=== PATIENT | male | born 1965 | race Caucasian/White ===

== ENCOUNTER 2024-05-13 06:00 | Outpatient (RCR) | payer MEDICARE, MEDICAID, SELFPAY | END 2024-06-11 23:59 | disposition home or self-care (01) | LOC: MPT 06:00 | PROVIDERS: Visit Provider Student in an Organized Health Care Education/Training Program | DX: M25.571 Pain in right ankle and joints of right foot (principal); G89.29 Other chronic pain | CPT/HCPCS: 97110; 97112; 97140; 97162 ==

== ENCOUNTER 2024-06-12 05:00 | Outpatient (RCR) | payer MEDICARE, MEDICAID, SELFPAY | END 2024-07-12 23:59 | disposition home or self-care (01) | LOC: MPT 05:00 | PROVIDERS: Visit Provider Student in an Organized Health Care Education/Training Program | DX: M25.571 Pain in right ankle and joints of right foot (principal); G89.29 Other chronic pain; M25.671 Stiffness of right ankle, not elsewhere classified | CPT/HCPCS: 97110; 97112 ==

== ENCOUNTER 2024-07-13 05:00 | Outpatient (RCR) | payer MEDICARE, MEDICAID, SELFPAY | END 2024-08-11 23:59 | disposition home or self-care (01) | LOC: MPT 05:00 | PROVIDERS: Visit Provider Student in an Organized Health Care Education/Training Program | DX: M25.571 Pain in right ankle and joints of right foot (principal); M25.671 Stiffness of right ankle, not elsewhere classified; G89.29 Other chronic pain | CPT/HCPCS: 97110 ==

== ENCOUNTER 2024-10-12 22:31 | Emergency (ER) | payer MEDICARE, MEDICAID, SELFPAY ==
--- OUTSIDE RECORDS SUMMARY | 2024-10-09 09:00 | XMS_ITS | Encounter Summary ---
Author Organization [facility] Address 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 Role Phone Yung Sanford DO Primary Care Provider [phone] Reason for Referral * CT Scan (Routine) - Pending Review Specialty Diagnoses / Procedures Referred By Isai acevedo Referred To Contact Radiology Diagnoses Tobacco use Personal history of nicotine dependence Procedures CT LUNG SCREENING (LDCT BASELINE OR ANNUAL) Yung Sanford DO [address] [place] [phone] Phone: tel: fax: [facility] [place] [address] [place] [phone] Phone: tel: fax: Referral ID Status Reason Start Date Expiration Date Visits Requested Visits Authorized [id number] Pending Review [facility] [place] Schedule 10/09/2024 11/09/2025 1 1 Reason for Visit * Reason Comments Chronic Conditions Coordination Smoking Cessation Encounter Details Date Type Department Care Team (Late st Contact Info) Description 10/09/2024 9:00 AM CDT Office Visit [facility] [address] [place] [phone] Yung Sanford DO [address] [place] [phone] Encounter for routine adult health examination without abnormal findings (Primary Dx); Mixed hyperlipidemia; Chronic bilateral low back pain without sciatica; Inflammatory arthritis; Tobacco use; Personal history of nicotine dependence; Encounter for colorectal cancer screening; Night sweats Social History Tobacco Use Types Packs/Day Years Used Date Smoking Tobacco: Every Day Cigarettes 1 45 Smokeless Tobacco: Never Alcohol Use Standard Drinks/Week Comments No 0 (1 standard drink = 0.6 oz pur e alcohol) Feeling Safe Answer Date Recorded Are you in a relationship wi th someone who hurts you emotionally and/or physically? 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 Gender Identity Not on file Sexual Orientation Not on file documented as of this encounter Last Filed Vital Signs Vital Sign Reading Time Taken Comments Blood Pressure 136/76 10/09/2024 9:05 AM CDT Pulse 92 10/09/2024 9:05 AM CDT Temperature 36.7 C (98 F) 10/09/2024 9:05 AM CDT Respiratory Rate 18 10/09/2024 9:05 AM CDT Oxygen Saturation 99% 10/09/2024 9:05 AM CDT Room Air Inhaled Oxygen Concentration - - Weight 78.6 kg (173 lb 3.2 oz) 10/09/2024 9:05 A M CDT Height 170.2 cm (5' 7 ) 10/09/2024 9:05 AM CDT Body Mass Index 27.13 10/09/2024 9:05 AM CDT documented in this encounter Patient Instructions * Attachments The following attachments cannot be sent through Care Everywhere. * Bupropion ([place]) * Sleep Health: General Info ([place]) documented in this encounter Progress Notes * Yung Sanford DO - 10/09/2024 9:07 AM CDT Chief Complaint Patient presents with Chronic Conditions Coordination SUBJECTIVE: History of Present Illness The patient is a 59-year-old male presenting for a general follow-up. Arthritis - History of arthritis, evaluated by rheumatology - Started on Humira for possible psoriatic arthritis with red flakiness behind the ears and in the groin - Humira has been effective, and he reported improvement to rheumatology on 07/09/2024 - No red flakiness on his hairline Hyperlipidemia - Elevated A1c of 5.7 in 07/2024 Chronic Ankle Dysplasia or Instability - Diagnosed by pain management in 05/2024 - Performs home exercises due to financial constraints - Steroids and Flexeril on 09/02/2024 did not significantly alleviate his back pain - Plans to schedule another nerve burn procedure High Blood Sugar Level - High blood sugar level during the last test, attributed to not fasting and consuming soda prior - Drinks soda daily and refills his bottle throughout the day Sleep Disturbances - Often awake until 4:00 AM - Deep breathing exercises help him fall asleep quickly - Wakes up after a few hours to use the bathroom and remains awake for another 4 hours - No reported stress Fevers - Experiencing fevers at night, starting 3 days ago, lasting for a couple of weeks - Fevers occur around bedtime, causing hot eyes and body warmth, shivering, and excessive sweating - Morning headaches - Normal body temperature is 96.8??F, rising to 99??F during episodes - Increased coughing and expectoration - No worsening of head congestion Additional Information - Interested in colon cancer screening - Considering quitting smoking, exploring alternatives to patches and Chantix, which causes nausea - No new lumps, bumps, bruises, chest pain, shortness of breath, diarrhea, abdominal pain, bladder pain, blood in urine or bowel movements, or changes in urinary habits Wt Readings from Last 5 Encounters: 10/09/24 78.6 kg (173 lb 3.2 oz) 09/02/24 78.3 kg (172 lb 9.6 oz) 07/22/24 78 kg (172 lb) 07/09/24 78.2 kg (172 lb 8 oz) 05/05/24 76.2 kg (168 lb) Ht Readings from Last 1 Encounters: 10/09/24 5' 7 (1.702 m) BMI Readings from Last 5 Encounters: 10/09/24 27.13 kg/m?? 09/02/24 27.03 kg/m?? 07/22/24 26.94 kg/m?? 07/09/24 27.02 kg/m?? 05/05/24 26.31 kg/m?? Current Outpatient Medications on File Prior to Visit Medication Sig Dispense Refill adalimumab (Humira,CF, Pen) 40 mg/0.4 mL Pen Injector Kit INJECT 0.4ML SUBCUTANEOUSLY ONCE EVERY 2 WEEKS 2 Each 6 diclofenac sodium (VOLTAREN) 50 mg Tablet, Delayed Release (E.C.) Take 1 Tablet (50 mg) by mouth 2 times daily. 180 Tablet 3 rosuvastatin (CRESTOR) 10 mg tablet Take 1 Tablet (10 mg) by mouth daily. 100 Tablet 3 acetaminophen (TYLENOL) 500 mg tablet Take 2 Tablets (1,000 mg) by mouth every 6 hours as needed for Pain. 240 Tablet 11 No current facility-administered medications on file prior to visit. PAST MEDICAL/SURGICAL HISTORY: Past Medical History: Diagnosis Date Back pain 30+ years Melanoma of neck (CMS/HCC) Past Surgical History: Procedure Laterality Date CATARACT EXTRACTION Left 07/07/2021 HX MASTOIDECTOMY HX MOLE REMOVAL Left left side of bottom HX VASECTOMY Social History Socioeconomic History Marital status: Tobacco Use Smoking status: Every Day Current packs/day: 1.00 Average packs/day: 1 pack/day for 45.0 years (45.0 ttl pk-yrs) Types: Cigarettes Smokeless tobacco: Never Vaping Use Vaping status: Never Used Substance and Sexual Activity Alcohol use: No Drug use: No Sexual activity: Not Currently Social Drivers of Health Feeling Safe: Not At Risk (03/24/2024) Feeling Safe Patient has indicated abuse: : No OBJECTIVE: PHYSICAL EXAM: BP 136/76 (BP Location: Right arm, Patient Position (BP): Sitting, BP Cuff Size: Adult) Pulse 92 Temp 98 ??F (36.7 ??C) (Temporal) Resp 18 Ht 5' 7 (1.702 m) Wt 78.6 kg (173 lb 3.2 oz) SpO2 99% Comment: Room Air BMI 27.13 kg/m?? Physical Exam Vitals and nursing note reviewed. Constitutional: General: He is not in acute distress. Appearance: Normal appearance. He is normal weight. He is not ill-appearing, toxic-appearing or diaphoretic. HENT: Head: Normocephalic and atraumatic. Right Ear: External ear normal. Left Ear: External ear normal. Nose: Nose normal. No rhinorrhea. Mouth/Throat: Mouth: Mucous membranes are moist. Eyes: General: No scleral icterus. Extraocular Movements: Extraocular movements intact. Conjunctiva/sclera: Conjunctivae normal. Cardiovascular: Rate and Rhythm: Normal rate and regular rhythm. Pulses: Normal pulses. Pulmonary: Effort: Pulmonary effort is normal. Breath sounds: No stridor. No wheezing. Abdominal: General: Abdomen is flat. Musculoskeletal: General: No deformity or signs of injury. Normal range of motion. Cervical back: Normal range of motion and neck supple. Right lower leg: No edema. Left lower leg: No edema. Lymphadenopathy: Cervical: No cervical adenopathy. Skin: General: Skin is warm and dry. Capillary Refill: Capillary refill takes less than 2 seconds. Findings: No bruising or erythema. Neurological: General: No focal deficit present. Mental Status: He is alert and oriented to person, place, and time. Gait: Gait normal. Psychiatric: Mood and Affect: Mood normal. Behavior: Behavior normal. Procedures RESULTS: Results Telephone on 07/10/24 (from the past 16 weeks) CBC WITH DIFFERENTIAL Collection Time: 07/29/24 8:53 AM Result Value Ref Range WBC 7.1 3.8 - 10.8 Thousand/uL RBC 5.31 4.20 - 5.80 Million/uL HEMOGLOBIN 16.8 13.2 - 17.1 g/dL HEMATOCRIT 51.3 (H) 38.5 - 50.0 % MCV 96.6 80.0 - 100.0 fL MCH 31.6 27.0 - 33.0 pg MCHC 32.7 32.0 - 36.0 g/dL RDW 13.0 11.0 - 15.0 % PLATELETS 168 140 - 400 Thousand/uL MPV 9.6 7.5 - 12.5 fL NEUTROPHIL ABSOLUTE 3,635 1,500 - 7,800 cells/uL LYMPHOCYTE ABSOLUTE 2,805 850 - 3,900 cells/uL MONOCYTE ABSOLUTE 447 200 - 950 cells/uL EOSINOPHIL ABSOLUTE 170 15 - 500 cells/uL BASOPHILS ABSOLUTE 43 0 - 200 cells/uL NEUTROPHIL 51.2 % LYMPHOCYTES 39.5 % MONOCYTE 6.3 % EOSINOPHILS 2.4 % BASOPHILS 0.6 % COMPREHENSIVE METABOLIC PANEL Collection Time: 07/29/24 8:53 AM Result Value Ref Range GLUCOSE 132 (H) 65 - 99 mg/dL BUN 16 7 - 25 mg/dL CREATININE 0.97 0.70 - 1.30 mg/dL GFR 90 > OR = 60 mL/min/1.73m2 BUN/CREAT RATIO SEE NOTE: 6 - 22 (calc) SODIUM 137 135 - 146 mmol/L POTASSIUM 3.8 3.5 - 5.3 mmol/L CHLORIDE 106 98 - 110 mmol/L CO2 23 20 - 32 mmol/L CALCIUM 8.7 8.6 - 10.3 mg/dL TOTAL PROTEIN 6.1 6.1 - 8.1 g/dL ALBUMIN 4.2 3.6 - 5.1 g/dL GLOBULIN 1.9 1.9 - 3.7 g/dL (calc) ALBUMIN/GLOBULIN RATIO 2.2 1.0 - 2.5 (calc) BILIRUBIN TOTAL 0.3 0.2 - 1.2 mg/dL ALKALINE PHOSPHATASE 81 35 - 144 U/L AST 24 10 - 35 U/L ALT 32 9 - 46 U/L HEMOGLOBIN A1C Collection Time: 07/29/24 8:53 AM Result Value Ref Range HEMOGLOBIN A1C 5.7 (H) <5.7 % ESTIMATED AVERAGE GLUCOSE (MG/DL) 117 mg/dL ESTIMATED AVERAGE GLUCOSE (MMOL/L) 6.5 mmol/L LIPID PANEL Collection Time: 07/29/24 8:53 AM Result Value Ref Range CHOLESTEROL 105 <200 mg/dL HDL 26 (L) > OR = 40 mg/dL TRIGLYCERIDE 384 (H) <150 mg/dL LDL CALCULATED 39 mg/dL (calc) CHOL/HDL RATIO 4.0 <5.0 (calc) NON-HDL CHOLESTEROL 79 <130 mg/dL (calc) TSH Collection Time: 07/29/24 8:53 AM Result Value Ref Range TSH 1.67 0.40 - 4.50 mIU/L VITAMIN D 25 HYDROXY Collection Time: 07/29/24 8:53 AM Result Value Ref Range VITAMIN D, 25 OH, TOTAL 21 (L) 30 - 100 ng/mL PSA Collection Time: 07/29/24 8:53 AM Result Value Ref Range PSA 0.54 < OR = 4.00 ng/mL MICROALBUMIN/CREATININE RATIO, RANDOM UR Collection Time: 07/29/24 8:54 AM Result Value Ref Range CREATININE, URINE 233 20 - 320 mg/dL ALBUMIN, URINE 0.4 See Note: mg/dL ALB/CREAT RATIO, URINE 2 <30 mg/g creat - Labs: - A1c: 5.7% (07/2024) - LDL cholesterol: Normal - Vitamin D: Slightly low - PSA: Normal ASSESSMENT/PLAN: ICD-10-CM ICD-9-CM 1. Encounter for routine adult health examination without abnormal findings Z00.00 V70.0 2. Mixed hyperlipidemia E78.2 272.2 3. Chronic bilateral low back pain without sciatica M54.50 724.2 G89.29 338.29 4. Inflammatory arthritis M19.90 714.9 5. Tobacco use Z72.[address] LUNG SCREENING (LDCT BASELINE OR ANNUAL) buPROPion HCL (WELLBUTRIN SR) 150 mg Sustained Release 12 hour tablet 6. Personal history of nicotine dependence Z87.[address] LUNG SCREENING (LDCT BASELINE OR ANNUAL) buPROPion HCL (WELLBUTRIN SR) 150 mg Sustained Release 12 hour tablet 7. Encounter for colorectal cancer screening Z12.11 V76.51 OCCULT BLOOD IMMUNOASSAY, COLORECTAL SCREEN Z12.12 V76.41 8. Night sweats R61 780.8 CBC WITH DIFFERENTIAL C-REACTIVE PROTEIN TSH Assessment & Plan 1. Psoriatic Arthritis: Stable. - Continue Humira as prescribed by Rheumatology. 2. Chronic Ankle Dysplasia: - Diagnosed with chronic ankle dysplasia and instability by Pain Management in May. - Given physical therapy exercises but has difficulty affording regular sessions. Additional exercises from the [employer] for knees, hips, and back will be provided. - Continue home exercises as recommended by Pain Management. 3. Hyperlipidemia: Stable. - Continue current low dose of rosuvastatin. 4. Prediabetes: A1c 5.7. - Monitor sugar intake and limit sweets, candies, cookies, cakes, pies, and soda intake to one 12-ounce can with a meal. 5. Vitamin D Deficiency: Vitamin D slightly low. - Take vitamin D supplements at 4000 units daily (100 mcg daily). - Recheck vitamin D levels in approximately 6 months. 6. Smoking Cessation: - Prescribe bupropion to aid in smoking cessation. Taper back on smoking while taking the medication. 7. Insomnia: - Discussed techniques such as deep breathing exercises and clearing space. Provide information on sleep hygiene. - Prescribe hydroxyzine for use as needed to aid sleep. 8. Night Sweats: - Order labs to check thyroid function, red and white blood cell counts, and CRP levels. 9. Health Maintenance: - Schedule lung cancer screening due to smoking history. - Provide stool test for colon cancer screening. Follow-up - Scheduled in 3 months. Preventive Care Recommendations for AVERAGE Risk Adult Males 55 - 65 years old Measure USPSTF Recommendation Plan Colon Cancer screening Colonoscopy every 10 yrs or FIT yearly; ages 45-75 ordered/scheduled Lung Cancer Screening Annual low-dose CT, adults 50 - 80* w/ >20 pack-year smoking hx who currently smoke or have quit w/in 15 yrs (*Some insurances may not cover <55 yo, >77 yo or <30 pk yrs) meets criteria, ordered reports that he has been smoking cigarettes. He has a 45 pack-year smoking history. He has never used smokeless tobacco. Lipid Screening Identification of dyslipidemia and calculation of 10-year CVD event risk requires universal lipid screening in adults ages 40 - 75 already done/up to date, ordered/scheduled Diabetes screening Adults 40-70 who are overweight or obese already done/up to date PSA testing Men 55-69: individual decision based on review of potential benefits and harms. Men >70 not recommended already done/up to date HIV testing Adolescents and adults 15 - 65 patient declined Hepatitis C Screening Adults 18-79 Screening previously completed Immunizations COVID-19 Influenza Pneumococcal Tdap/Td Zoster (Shingles) LOW DOSE CT LUNG CANCER SCREENING ELIGIBILITY CRITERIA (must meet all) Age between 50-80 years Asymptomatic for signs or symptoms of lung cancer Smoking history of at least 20 pack years Current smoker or one who has quit smoking within the last 15 years Total pack-years of tobacco smokin TOBACCO COUNSELING He was counseled to discontinue tobacco/nicotine use. He was provided a prescription for tobacco/nicotine cessation medication. Counseled re: importance of maintaining cigarette smoking abstinence if former smoker; or importance of smoking cessation if current smoker. SHARED DECISION MAKING Patient is willing and healthy enough to undergo further diagnostic testing, including lung biopsy. Patient is willing and healthy enough to be treated for lung cancer should it be diagnosed. Patient also agrees to adhere to a program of yearly CT lung screening exams until he is no longer eligible for participation in lung cancer screening based on the criteria listed above. The benefits and harms of screening have been discussed. Screening will be discontinued once an individual has not smoked for 15 years, develops a health problem that substantially limits life expectancy or the ability or willingness to have curative lung surgery or reaches the age of 80. Yung Sanford, DO Depression Screen PHQ-2 & PHQ-9 Little interest or pleasure in doing things: (Patient-Rptd) Several Days (10/08/242317) Feeling down, depressed, or hopeless: (Patient-Rptd) Not at all (10/08/242317) PHQ-2 Total: (Patient-Rptd) 1 (10/08/242317) Trouble falling or staying asleep, or sleeping too much: (Patient-Rptd) More than half the days (10/08/242317) Feeling tired or having little energy: (Patient-Rptd) Nearly every day (10/08/242317) Poor appetite or overeating: (Patient-Rptd) Several Days (10/08/242317) Feeling bad about yourself-or that you are a failure or have let yourself or your family down: (Patient-Rptd) Not at all (10/08/242317) Trouble concentrating on things, such as reading the newspaper or watching television: (Patient-Rptd) Not at all (10/08/242317) Moving or speaking so slowly that other people could have noticed. Or the opposite-being so fidgetyor restless that you have been moving around a lot more than usual: (Patient-Rptd) Not at all (10/08/242317) Thoughts that you would be better off , or of hurting yourself in some way: (Patient-Rptd) Not at all (10/08/242317) PHQ-9 Total: (Patient-Rptd) 7 (10/08/242317) Positive: PHQ-2 score >= 3 or PHQ-9 score >= 9 PHQ-2 Total: (Patient-Rptd) 1 (10/08/2024 11:18 PM) PHQ-9 Total: (Patient-Rptd) 7 (10/08/2024 11:18 PM) DEPRESSION PLAN OF CARE Positive depression screen reviewed. On further clinical assessment, patient is not suffering from depression. No follow-up is required. Continue annual screening. 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 This note was automatically generated by a Generative AI technology (Cast[employer]), reviewed, edited, and finalized by Yung Sanford DO. Yung Sanford DO Portions of this note were created using [employer] Dictation software. Attempts were made to correct any mistakes prior to signing this note. There is always a possibility that words were not transcribed correctly. This note is made as a medical record and medical terms have been used where appropriate. If you do not recognize a term or feel it is inaccurate please call the office to discuss or schedule a follow-up appointment. documented in this encounter Miscellaneous Notes * Patient Instructions - Yung Sanford DO - 10/09/2024 9:46 AM CDT Prescription for bupropion (Wellbutrin, Zyban). Start by taking 1 tablet once a day for the first 3days, then can increase to twice a day. Set a quit date in the next 2 to 3 weeks. Begin medication and then start reducing smoking every 4 days by 1/3 to 1/2 each time. If you feel ready to quit smoking sooner, you may stop at any time. Continue the medication. Medication can be continued through 1 year to ensure success with smoking cessation. Most common side effects include headache, dry mouth, nausea, and weight loss. Occasionally will cause insomnia, dizziness, or sore throat. Has also been known to cause constipation or diarrhea, or loss of appetite. Do not start if you have a history of seizure. Prescription for nicotine patch. Those who smoke more than 10 cigarettes per day should use the 21-mg/day patch for the first 6 weeks, the 14-mg/day patch for 2 weeks, and the 7-mg/day patch for the final 2 weeks. Remove backing and press patch onto clean, dry, hairless skin and hold for 10 seconds Do not cut patch into smaller pieces Apply to a different skin site at the same time each day Do not wear more than 1 patch at a time Do not leave patch on for longer than 24 hours. In case of vivid dreams, the patch may be removed at bedtime and a new patch should be applied in the morning. To dispose of used patches, fold the sticky ends of together and replace into original pouch . Wash hands after handling the patch. Prescription for nicotine lozenges. Do not use more than 1 lozenge at a time. Weeks 1 to 6: 1 lozenge every 1 to 2 hours (maximum: 5 lozenges every 6 hours; 20 lozenges/day); toincrease chances of quitting, use at least 9 lozenges/day during the first 6 weeks. Weeks 7 to 9: 1 lozenge every 2 to 4 hours (maximum: 5 lozenges every 6 hours; 20 lozenges/day). Weeks 10 to 12: 1 lozenge every 4 to 8 hours (maximum: 5 lozenges every 6 hours; 20 lozenges/day). lozenge should dissolve in mouth without chewing or swallowing use no more than 20 lozenges per day avoid eating and drinking anything but water for 15 minutes before and during use common adverse effects include hiccups, nausea, cough, heartburn, headache, flatulence, and insomnia HOW TO DECREASE ANXIETY/INSOMNIA BREATHE Breathe in for four, hold for seven, breathe out for eight The slow exhale promotes the brain into relaxing the body Try using the -7-[address] Amor Casarez at https://Docalytics.be/[email or web address]-p0y PROGRESSIVE RELAXATION Tense a group of muscles as you breath in, relax them as you breathe out Do in an order (top to bottom or bottom to top), start with the least tense area of your body Try using the Relaxation Response with Dr. Per Linn at https://Docalytics.be/[email or web address] FIVE SENSES ACTIVITY (GROUNDING) - this is a great way to stop a panic attack Notice five things you can SEE Notice four things you can FEEL Notice three things you can HEAR Notice two things you can SMELL Notice one thing you can TASTE DO SOMETHING PRODUCTIVE Activity is a great distraction Do an activity which gives you satisfaction Examples: clean something, organized items for donation, learn a craft, read, walk the dog, weed orrake, make a list of people to check in with CLEARING SPACE Sit quietly with eyes closed and focus on the image of an open container ready to receive every issue on your mind. See and name each issue or worry, and imagine putting it into the container. When no more issues come to mind, mentally put a lid on the container and place it on a shelf forin some other out of the way place. Then invite into the space what ever is the most important thought or feeling, for example a work related issue, a shopping list, or what your friends or family are saying. You may choose to write down a list and put it in a physical location such as a desk drawer or evenin the freezer to chill out. KEEP ON A SCHEDULE A schedule helps us feel more in control Put things on it that are ~ Solitary (reading, crafting, baking, self-care, learning) ~ Social (calling friends and family, checking in on social media) ~ Necessary (cleaning, laundry) ~ Physical (exercise - walking is a GREAT exercise) Do not stay on [employer] or social media sites for long periods of time Avoid too much input without rest Take breaks to switch activities Spend some time away from screens Eat at regular times mealtimes CONTROL WHAT IS YOURS TO CONTROL Manage the Body ~Eating correctly/healthy ~Avoid alcohol, nicotine, sugar, and caffeine ~Exercise regularly Remember, I do not have to spend time dwelling on what is not mine to control. HELPFUL MENTAL HEALTH APPS [employer] NATIONAL AND LOCAL HOTLINES : Suicide - [phone] or call/text/chat to 988 Domestic Violence - Crisis Text Line - Text CONNECT to 511215 [place] Substance Abuse Hotline - 1-380-787-HELP (4357) [employer] [place] [employer] Mental [employer] (OLY) - 5-247-348-OLY (6264) [facility] 04/09 Crisis Walk-in: [place], [place]: [address] [place] [address] documented in this encounter Plan of Treatment Upcoming Encounters Date Type Department Care Team (Late st Contact Info) Description 10/29/2024 1:15 PM CDT Appointment [facility] [place] [address] [place] [phone] Yung Sanford DO [address], [place] [address] 01/07/2025 11:40 AM 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 [facility] Rheumatology- Owen Arce Matheny [address] [place] [address] Luis Alberto Mirza MD [address] [facility] [address] [place] [phone] 01/12/2025 2:40 PM 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 [facility] [address] [place] [phone] Katya Gutiérrez, [facility] [address] [place] [phone] Scheduled Orders Name Type Priority Associated Diagnoses Orde r Schedule CT LUNG SCREENING (LDCT BASELINE OR ANNUAL) Imaging Routine Tobacco use Personal history of nicotine dependence 1 Occurrences starting 10/09/2024 until 10/09/2025 OCCULT BLOOD IMMUNOASSAY, COLORECTAL SCREEN Lab Routine Encounter for colorectal cancer screening Expected: 10/09/2024, Expires: 12/04/2024 documented as of this encounter Procedures Procedure Name Priority Date/Time Associated Diagnosis Comments CBC WITH DIFFERENTIAL Routine 10/09/2024 10:13 AM CDT Night sweats C-REACTIVE PROTEIN Routine 10/09/2024 10 :13 AM CDT Night sweats TSH Routine 10/09/2024 10:13 AM CDT Night sweats documented in this encounter Results * TSH (10/09/2024 10:13 AM CDT) TSH 1.50 0.40 - 4.50 mIU/L [facility] Comment: Test Performed at: [facility] [address] [place] [address] Pal Fischer MD Blood 10/09/2024 10:1 3 AM CDT 10/09/2024 10:13 AM CDT us Yung Sanford DO CHEMISTRY ORDERABLES Final Re sult [facility] [phone] [facility] [address] [place] [address] * (ABNORMAL) C-REACTIVE PROTEIN (10/09/2024 10:13 AM CDT) Pathologist [facility] CRP 32.8(H) <8.0 mg/L [facility] Comment: Test Performed at: [facility] [address] [place] [address] Pal Fischer MD Blood 10/09/2024 10:1 3 AM CDT 10/09/2024 10:13 AM CDT Yung Sanford DO CHEMISTRY ORDERABLES Final Re sult [facility] [phone] [facility] [address] [address] * (ABNORMAL) CBC WITH DIFFERENTIAL (10/09/2024 10:13 AM CDT) [facility] WBC 7.0 3.8 - 10.8 Thousand/u L [facility] RBC 5.56 4.20 - 5.80 Million/uL [facility] HEMOGLOBIN 17.4(H) 13.2 - 17.1 g/dL [facility] HEMATOCRIT 52.3(H) 38.5 - 50.0 % [facility] MCV 94.1 80.0 - 100.0 fL [facility] MCH 31.3 27.0 - 33.0 pg [facility] MCHC 33.3 32.0 - 36.0 g/dL [facility] Comment: For adults, a slight decrease in the calculated MCHC value (in the range of 30 to 32 g/dL) is most likely not clinically significant; however, it should be interpreted with caution in correlation with other red cell parameters and the patient's clinical condition. RDW 13.4 11.0 - 15.0 % [facility] PLATELETS 122(L) 140 - 400 Thousand/u L [facility] MPV 10.3 7.5 - 12.5 fL [facility] NEUTROPHIL ABSOLUTE 3,248 1,500 - 7,800 cells/uL [facility] LYMPHOCYTE ABSOLUTE 2,926 850 - 3,900 cells/uL [facility] MONOCYTE ABSOLUTE 511 200 - 950 cells/uL [facility] EOSINOPHIL ABSOLUTE 273 15 - 500 cells/uL [facility] BASOPHILS ABSOLUTE 42 0 - 200 cells/uL [facility] NEUTROPHIL 46.4 % [facility] LYMPHOCYTES 41.8 % [facility] MONOCYTE 7.3 % [facility] EOSINOPHILS 3.9 % [facility] BASOPHILS 0.6 % [facility] Comment: Test Performed at: [facility] [address] [place] [address] Pal Fischer MD Blood 10/09/2024 10:1 3 AM CDT 10/09/2024 10:13 AM CDT Yung Sanford DO HEMATOLOGY ORDERABLES Final R esult [facility] [phone] [facility] [address] [place] [address] documented in this encounter Visit Diagnoses Diagnosis Encounter for routine adult health examination without abnormal findings- Primary Mixed hyperlipidemia Chronic bilateral low back pain without sciatica Inflammatory arthritis Unspecified inflammatory polyarthropathy Tobacco use Tobacco use disorder Personal history of nicotine dependence Personal history of tobacco use, presenting hazards to health Encounter for colorectal cancer screening Special screening for malignant neoplasms, colon Night sweats Generalized hyperhidrosis documented in this encounter Additional Health Concerns Assessment Noted Time PHQ-9 Depression Total Score: 1 10/09/19 25 11:18 PM CDT documented as of this encounter Care Teams [employer] Operator Relationship Specialty Start Date End Date Yung Sanford DO [address] [place] [address] PCP - General Family Practice 06/07/21 documented as of this encounter
[2024-10-12 22:33] VITALS: BP 123/75; PULSE 96; RESP 16; TEMP 36.7; O2SAT 99; BMI 26.6
--- OUTSIDE RECORDS SUMMARY | 2024-10-12 22:43 | XMS_ITS | Clinical Summary ---
[facility] Organization [facility] Address [address] [place] [address] Care Team Providers Care Home Demonstration Agent Name Role Phone Yung Sanford Primary Care Provider [phone] Allergies No known active allergies Medications acetaminophen (TYLENOL) 500 mg tabletIndications: Primary osteoarthritis involving multiple joints Take 2 Tablets (1,000 mg) by mouth every 6 hours as needed for Pain. 240 Tablet 11 08/25/19 22 Active rosuvastatin (CRESTOR) 10 mg tabletIndications: Hyperlipidemia, unspecified hyperlipidemia type Take 1 Tablet (10 mg) by mouth daily. 100 Tablet 3 11/06/19 24 Active diclofenac sodium (VOLTAREN) 50 mg Tablet, Delayed Release (E.C.) Take 1 Tablet (50 mg) by mouth 2 times daily. 180 Tablet 3 12/06/19 24 Active adalimumab (Humira,CF, Pen) 40 mg/0.4 mL Pen Injector Kit INJECT 0.4ML SUBCUTANEOUSLY ONCE EVERY 2 WEEKS 2 Each 6 07/10/19 25 Active buPROPion HCL (WELLBUTRIN SR) 150 mg Sustained Release 12 hour tabletIndications: Tobacco use,Personal history of nicotine dependence Take 1 Tablet (150 mg) by mouth 2 times daily. 60 Tablet 5 10/10/19 25 Active Active Problems Problem Noted Date Diagnosed Date Inflammatory arthritis 10/09/2024 Mood disorder 06/06/2022 Chronic pain of left ankle 09/25/2017 Tinea cruris 09/25/2017 Hearing loss of left ear 09/25/2017 Hyperlipemia 04/04/2017 Right ankle pain 04/03/2017 Bilateral knee pain 04/03/2017 Rash 04/03/2017 Nocturnal polyuria 04/03/2017 Chronic bilateral low back pain without sciatica 04/03/2017 Right shoulder pain 04/03/2017 Tobacco use 04/03/2017 History of melanoma 04/03/2017 Eczema 04/03/2017 Resolved Problems Problem Noted Date Diagnosed Date Resolved Date Blurred vision 04/03/2017 10/09/2024 Encounters Date Type Department Care Team Description 10/09/2024 9:00 AM CDT Office Visit [address] [phone] Yung Sanford DO Encounter for routine adult health examination without abnormal findings (Primary Dx); Mixed hyperlipidemia; Chronic bilateral low back pain without sciatica; Inflammatory arthritis; Tobacco use; Personal history of nicotine dependence; Encounter for colorectal cancer screening; Night sweats 09/02/2024 11:00 AM CDT Office Visit [address] [address] Sabrina Saavedra FNP Chronic bilateral back pain, unspecified back location (Primary Dx); Inflammatory arthritis 08/27/2024 External Device Data [facility] ABSTRACTION Provider, Abstract 08/27/2024 External Device Data [facility] ABSTRACTION Provider, Abstract 08/09/2024 Results Follow-Up [address] [address] Yung Sanford DO CBC WITH DIFFERENTIAL, COMPREHENSIVE METABOLIC PANEL, HEMOGLOBIN A1C, Additional followed-up results: 5 08/05/2024 External Device Data [facility] ABSTRACTION Provider, Abstract 08/05/2024 External Device Data [facility] ABSTRACTION Provider, Abstract 07/29/2024 10:00 AM CDT Procedure visit [address] [address] 07/22/2024 3:20 PM CDT Office Visit [facility] [address] [place] [phone] Imtiaz Murcia MD Chronic pain of right ankle (Primary Dx); Ankle stiffness, right; Chronic instability of ankle; Sinus tarsi syndrome of right ankle; Bilateral primary osteoarthritis of knee; Dupuytren's contracture of left hand from Last 3 Months Immunizations Immunization Administration Dates Next Due (PFIZER VIRGILIO)(12 YR UP PRIMA RY SERIES) COVID-19 VACCINE - EMERGENCY USE AUTHORIZATION, MRNA, VIRGILIO(PF) 30 MCG/0.3 ML IM SUSP 03/24/2021 (PFIZER)(12 YR UP) COVID-19 VACCINE - EMERGENCY USE AUTHORIZATION, MRNA, [id number](PF) 30 MCG/0.3 ML IM SUSP 06/12/2020,05/22/2020 (PREVNAR 13)(6 WKS UP) PNEUM OCOCCAL CONJUGATE (PCV13) 0.5 ML, IM 09/28/2021 (PREVNAR 20)(6 WKS UP) PNEUM OCOCCAL CONJUGATE VACCINE 20-VALENT (PCV20), POLYSACCHARIDE LDY001 CONJUGATE, ADJUVANT 0.5 ML (PF) IM 01/11/2023 INFLUENZA VACCINE QUADRIVALENT 6 MOS UP IM 04/03 INFLUENZA VACCINE QUADRIVALENT 6 MOS UP PF IM ,01/04/2022 Family History Medical History Relation Name Comments Cancer Father Dad Colon Cancer Father Dad Lung Cancer Father Dad Multiple Sclerosis Maternal Grandmother Cancer Mother Mom Heart Disease Mother Mom High Cholesterol Mother Mom Lung Cancer Mother Mom Cancer Paternal Grandmother Relation Name Status Comments Father Dad Maternal Grandfather Maternal Grandmother Mother Mom Paternal Grandfather Paternal Grandmother Social History Tobacco Use Types Packs/Day Years Used Date Smoking Tobacco: Every Day Cigarettes 1 45 Smokeless Tobacco: Never Tobacco Cessation:Ready to Q uit: Not Asked; Counseling Given: Not Answered Alcohol Use Standard Drinks/Week Comments No 0 (1 standard drink = 0.6 oz pur e alcohol) Feeling Safe Answer Date Recorded Are you in a relationship wi th someone who hurts you emotionally and/or physically? No 03/24/2024 Sex and Gender Information Value Date Recorded Sex Assigned at Not on file Legal Sex Male 2:33 AM OUTSOLE HANDLER Gender Identity Not on file Sexual Orientation Not on file Last Filed Vital Signs Vital Sign Reading [...] Mass Index 27.13 10/09/2024 9:05 AM CDT Plan of Treatment Upcoming Encounters Date Type Department Care Team (Late st Contact Info) Description 10/29/2024 1:15 PM CDT Appointment [facility] [address] [place] [phone] Yung Sanford DO [address] [place] [phone] 01/07/2025 11:40 AM OUTSOLE HANDLER Office Visit [facility] [place] [address] [place] [address] Luis Alberto Mirza MD [address] [place] [phone] 01/12/2025 2:40 PM OUTSOLE HANDLER Office Visit [facility] [place] [address] [phone] Katya Gutiérrez, BONDERITE OPERATOR [address] [place] [phone] Health Maintenance Due Date Last Done Comments FIT/ DNA Q 3 YEARS (AUTO ORDER) 08/14/1983 FIT/FOBT Q 1 YEAR (AUTO ORDER) 08/14/1983 FLEX SIG/CT COLONOGRAPHY Q 5 YEARS (AUTO ORDER) 08/14/1983 DTAP/TDAP/TD VACCINES (1 - Tdap) 1984 HEPATITIS B VACCINES (1 of 3 - 19+ 3-dose series) 1984 COLORECTAL CANCER SCREENING (AUTO ORDER) 2010 COLORECTAL SCREENING 2010 Colorectal Cancer Screening (AUTO ORDER) 2010 Colorectal Cancer Screening 2010 FIT-DNA Q 3 years 2010 FIT/FOBT Q 1 year 2010 Flex Sig/CT Colonography Q 5 years 2010 ZOSTER VACCINE (1 of 2) 08/14/2015 Lung Cancer Screening 10/20/2022 10/20/2021 COVID-19 Vaccine (4 - 2023-2 5 season) 2023 03/24/2021, 06/12/2020, 05/22/2020 INFLUENZA VACCINE (#1) 2024 , 01/01/2023, 01/04/2022, Additional history exists Pre-Diabetes and Diabetes Screening 07/30/2027 07/29/2024 [place] Preventative Visit/Annual Wellness Visit Completed 10/09/2024, 09/28/2021 Procedures Procedure Name Priority Date/Time Associated Diagnosis Comments TSH Routine 10/09/2024 10:13 AM CDT Night sweats C-REACTIVE PROTEIN Routine 10/09/2024 10 :13 AM CDT Night sweats CBC WITH DIFFERENTIAL Routine 10/09/2024 10:13 AM CDT Night sweats MICROALBUMIN/CREATIN INE RATIO, RANDOM UR Routine 07/29/2024 8:54 AM CDT Nocturnal polyuria PSA Routine 07/29/2024 8:53 AM CDT Screening PSA (prostate specific antigen) VITAMIN D 25 HYDROXY Routine 07/29/2024 8:53 AM CDT Sequelae of hyperalimentation TSH Routine 07/29/2024 8:53 AM CDT Nocturnal polyuria Other terminal manager (current) drug therapy LIPID PANEL Routine 07/29/2024 8:53 AM CDT Mixed hyperlipidemia HEMOGLOBIN A1C Routine 07/29/2024 8:53 AM CDT Wellness examination COMPREHENSIVE METABOLIC PANEL Routine 07/29/2024 8:53 AM CDT Wellness examination CBC WITH DIFFERENTIAL Routine 07/29/2024 8:53 AM CDT Wellness examination CT LUNG SCREENING (LDCT BASELINE OR ANNUAL) Routine 10/20/2021 4:49 PM CDT Encounter for screening for lung cancer from Last 3 Months or Most Recently Relevant to Health Maintenance Results * (ABNORMAL) CBC WITH DIFFERENTIAL (10/09/2024 10:13 AM CDT) Only the most recent of2 resultswithin the time period is included. WBC 7.0 3.8 - 10.8 Thousand/u L [...] [facility] Comment: Test Performed at: [facility] [address] [place] [address] Pal Fischer MD Blood 10/09/2024 10:1 3 AM CDT 10/09/2024 10:13 AM CDT Yung Sanford DO HEMATOLOGY ORDERABLES Final R esult Performing Organization Address [facility]/ZIP Co de Phone Number [facility] [phone] [facility] [address] * (ABNORMAL) C-REACTIVE PROTEIN (10/09/2024 10:13 AM CDT) CRP 32.8(H) <8.0 mg/L [facility] Comment: Test Performed at: [facility] [address] Pal Fischer MD Blood 10/09/2024 10:1 3 AM CDT 10/09/2024 10:13 AM CDT Yung Sanford DO CHEMISTRY ORDERABLES Final Re sult [facility] [phone] [facility] [address] [place] [phone] * TSH (10/09/2024 10:13 AM CDT) Only the most recent of2 resultswithin the time period is included. TSH 1.50 0.40 - 4.50 mIU/L [facility] Comment: Test Performed at: [facility] [address] Pal Fischer MD Blood 10/09/2024 10:1 3 AM CDT 10/09/2024 10:13 AM CDT Yung Claribel CHEMISTRY ORDERABLES Final Re sult [facility] [phone] [facility] [phone] * MICROALBUMIN/CREATININE RATIO, RANDOM UR (07/29/2024 8:54 AM CDT) CREATININE, URINE 233 20 - 320 mg/dL [facility] ALBUMIN, URINE 0.4 See Note: mg/dL [facility] Comment: Reference Range: Reference Range Not established ALB/CREAT RATIO, URINE 2 <30 mg/g creat [facility] Comment: The ADA defines abnormalities in albumin excretion as follows: Albuminuria Category Result (mg/g creatinine) Normal to Mildly increased <30 Moderately increased 30-299 Severely increased > OR = 300 The ADA recommends that at least two of three specimens collected within a 3-6 month period be abnormal before considering a patient to be within a diagnostic category. Test Performed at: [facility] [address] [place] [phone] Pal Fischer MD Urine URINE SPECIMEN OBTAINED BY CLEAN CATCH PROCEDURE / Unknown 07/29/2024 8:54 AM CDT 07/29/2024 8:54 AM CDT Yung Claribel SARMIENTO URINE ORDERABLES Final Result Performing Organization Address City/[facility]/ZIP Co de Phone Number [facility] [phone] [facility] [address] * (ABNORMAL) VITAMIN D 25 HYDROXY (07/29/2024 8:53 AM CDT) VITAMIN D, 25 OH, TOTAL 21(L) 30 - 100 ng/mL [facility] Comment: Vitamin D Status 25-OH Vitamin D: Deficiency: <20 ng/mL Insufficiency: 20 - 29 ng/mL Optimal: > or = 30 ng/mL For 25-OH Vitamin D testing on patients on D2-supplementation and patients for whom quantitation of D2 and D3 fractions is required, the [facility](TM) 25-OH VIT D, (D2,D3), LC/MS/MS is recommended: order code 30745 (patients >2yrs). See Note 1 Note 1 For additional information, please refer to http://education.[employer]/faq/OLF951 (This link is being provided for informational/ educational purposes only.) FASTING:YES FASTING: YES Test Performed at: [facility] [address] [facility] [place] [address] Pal Fischer MD Blood 07/29/2024 8:53 AM CDT 07/29/2024 8:53 AM CDT Yung Sanford CHEMISTRY ORDERABLES Final Re sult [facility] [phone] [facility] [address] * PSA (07/29/2024 8:53 AM CDT) PSA 0.54 < OR = 4.00 ng/mL [facility] Comment: The total PSA value from this assay system is standardized against the WHO standard. The test result will be approximately 20% lower when compared to the equimolar-standardized total PSA (Kristy Savannah). Comparison of serial PSA results should be interpreted with this fact in mind. This test was performed using the Siemens chemiluminescent method. Values obtained from different assay methods cannot be used interchangeably. PSA levels, regardless of value, should not be interpreted as absolute evidence of the presence or absence of disease. Test Performed at: [facility] [address] [facility] [place] [address] Pal Fischer MD Blood 07/29/2024 8:53 AM CDT 07/29/2024 8:53 AM CDT Yung Sanford CHEMISTRY ORDERABLES Final Re sult Performing Organization Address [facility]/ZIP Co de Phone Number [facility] [phone] [facility] [id number] [place] [address] [place] [address] * (ABNORMAL) HEMOGLOBIN A1C (07/29/2024 8:53 AM CDT) HEMOGLOBIN A1C 5.7(H) <5.7 % [facility] Comment: For someone without known diabetes, a hemoglobin A1c value between 5.7% and 6.4% is consistent with prediabetes and should be confirmed with a follow-up test. For someone with known diabetes, a value <7% indicates that their diabetes is well controlled. A1c targets should be individualized based on duration of diabetes, age, comorbid conditions, and other considerations. This assay result is consistent with an increased risk of diabetes. Currently, no consensus exists regarding use of hemoglobin A1c for diagnosis of diabetes for children. ESTIMATED AVERAGE GLUCOSE (MG/DL) 117 mg/dL [facility] ESTIMATED AVERAGE GLUCOSE (MMOL/L) 6.5 mmol/L [facility] Comment: FASTING:YES FASTING: YES Test Performed at: [facility] [address] [place] [phone] Pal Fischer MD Blood 07/29/2024 8:53 AM CDT 07/29/2024 8:53 AM CDT us Yung Claribel SARMIENTO CHEMISTRY ORDERABLES Final Re sult [facility] [phone] [facility] [address] [place] [phone] * (ABNORMAL) LIPID PANEL (07/29/2024 8:53 AM CDT) CHOLESTEROL 105 <200 mg/dL [facility] HDL 26(L) > OR = 40 mg/dL [facility] TRIGLYCERIDE 384(H) <150 mg/dL [facility] Comment: If a non-fasting specimen was collected, consider repeat triglyceride testing on a fasting specimen if clinically indicated. Britt et al. J. of Clin. Lipidol. 2015;9:129-169. LDL CALCULATED 39 mg/dL (calc) [facility] Comment: Reference range: <100 Desirable range <100 mg/dL for primary prevention; <70 mg/dL for patients with CHD or diabetic patients with > or = 2 CHD risk factors. LDL-C is now calculated using the Nirmal-Turpin calculation, which is a validated novel method providing better accuracy than the Friedewald equation in the estimation of LDL-C. Nirmal SS et al. ATIYA. 2013;310(19): 2830-4245 (http://education.[employer]/faq/IJV420) CHOL/HDL RATIO 4.0 <5.0 (calc) [facility] NON-HDL CHOLESTEROL 79 <130 mg/dL (calc) [facility] Comment: For patients with diabetes plus 1 major ASCVD risk factor, treating to a non-HDL-C goal of <100 mg/dL (LDL-C of <70 mg/dL) is considered a therapeutic option. Test Performed at: [facility] [address] [place] [address] Pal Fischer MD Blood 07/29/2024 8:53 AM CDT 07/29/2024 8:53 AM CDT Yung Sanford DO CHEMISTRY ORDERABLES Final Re sult [facility] [phone] [facility] [address] [place] [address] * (ABNORMAL) COMPREHENSIVE METABOLIC PANEL (07/29/2024 8:53 AM CDT) GLUCOSE 132(H) 65 - 99 mg/dL [facility] Comment: Fasting reference interval For someone without known diabetes, a glucose value >125 mg/dL indicates that they may have diabetes and this should be confirmed with a follow-up test. BUN 16 7 - 25 mg/dL [facility] CREATININE 0.97 0.70 - 1.30 mg/dL [facility] GFR 90 > OR = 60 mL/min/1. 73m2 [facility] BUN/CREAT RATIO SEE NOTE: 6 - 22 (calc) [facility] Comment: Not Reported: BUN and Creatinine are within reference range. SODIUM 137 135 - 146 mmol/L [facility] POTASSIUM 3.8 3.5 - 5.3 mmol/L [facility] CHLORIDE 106 98 - 110 mmol/L [facility] CO2 23 20 - 32 mmol/L [facility] CALCIUM 8.7 8.6 - 10.3 mg/dL [facility] TOTAL PROTEIN 6.1 6.1 - 8.1 g/dL [facility] ALBUMIN 4.2 3.6 - 5.1 g/dL [facility] GLOBULIN 1.9 1.9 - 3.7 g/dL (calc) [facility] ALBUMIN/GLOBULIN RATIO 2.2 1.0 - 2.5 (calc) [facility] BILIRUBIN TOTAL 0.3 0.2 - 1.2 mg/dL [facility] ALKALINE PHOSPHATASE 81 35 - 144 U/L [facility] AST 24 10 - 35 U/L [facility] ALT 32 9 - 46 U/L [facility] Comment: FASTING:YES FASTING: YES Test Performed at: [facility] [address] [place] [address] Pal Fischer MD Blood 07/29/2024 8:53 AM CDT 07/29/2024 8:53 AM CDT us Yung Sanford DO CHEMISTRY ORDERABLES Final Re sult [facility] [phone] [email or web address] [address] [place] [address] * CT LUNG SCREENING (LDCT BASELINE OR ANNUAL) (10/20/2021 4:49 PM CDT) Anatomical Region Laterality Modality Chest Computed Tomogra phy 10/20/2021 5:13 PM CDT Impressions 10/20/2021 10:04 PM CDT IMPRESSION: Please see below. Exam: CT LUNG SCREENING (LDCT BASELINE OR ANNUAL) Date/Time of Exam: 10/20/2021 4:49 PM Reason For Exam: Lung cancer screening, >= 20 pk-yr smoking history (Age >= 50y). Diagnosis: Encounter for screening for lung cancer. Technique: Low-dose CT of the chest was performed without the use of contrast. Comparison: None. FINDINGS: Evaluation of the vasculature is limited without the use of contrast. Thoracic Inlet: The thoracic inlet is within normal limits. Lymph Nodes: No pathologic axillary, mediastinal or hilar lymph nodes are identified given limitations of lack of contrast. Heart: The heart is normal in size. There is no pericardial effusion. Thoracic Aorta: The thoracic aorta is nonaneurysmal. Pulmonary Arteries: The pulmonary arteries are within normal limits. Upper Abdomen: There is no significant upper abdominal pathology. Subcutaneous Soft Tissues: There is no significant subcutaneous soft tissue pathology. Bones: The osseous structures appear grossly intact. No suspicious osseous lesions are identified. Tracheobronchial Tree: The tracheobronchial tree is within normal limits. Lungs: There is no pulmonary consolidation. There are small noncalcified nodules within the right upper lobe with the largest on image 89 of series 4 has an average diameter of 0.4 cm. Pleura: There is no pleural effusion or pneumothorax. IMPRESSION: Lung-RADS 2: BENIGN APPEARANCE OR BEHAVIOR. Nodules with a very low likelihood of becoming a clinically active cancer due to size or lack of growth. Continue annual screening with LDCT in 12 months. Narrative Procedure Note Chapito Darnell, - 10/20/2021 IMPRESSION: Please see below. Exam: CT LUNG SCREENING (LDCT BASELINE OR ANNUAL) Date/Time of Exam: 10/20/2021 4:49 PM Reason For Exam: Lung cancer screening, >= 20 pk-yr smoking history (Age >= 50y). Diagnosis: Encounter for screening for lung cancer. Technique: Low-dose CT of the chest was performed without the use of contrast. Comparison: None. FINDINGS: Evaluation of the vasculature is limited without the use of contrast. Thoracic Inlet: The thoracic inlet is within normal limits. Lymph Nodes: No pathologic axillary, mediastinal or hilar lymph nodes are identified given limitations of lack of contrast. Heart: The heart is normal in size. There is no pericardial effusion. Thoracic Aorta: The thoracic aorta is nonaneurysmal. Pulmonary Arteries: The pulmonary arteries are within normal limits. Upper Abdomen: There is no significant upper abdominal pathology. Subcutaneous Soft Tissues: There is no significant subcutaneous soft tissue pathology. Bones: The osseous structures appear grossly intact. No suspicious osseous lesions are identified. Tracheobronchial Tree: The tracheobronchial tree is within normal limits. Lungs: There is no pulmonary consolidation. There are small noncalcified nodules within the right upper lobe with the largest on image 89 of series 4 has an average diameter of 0.4 cm. Pleura: There is no pleural effusion or pneumothorax. IMPRESSION: Lung-RADS 2: BENIGN APPEARANCE OR BEHAVIOR. Nodules with a very low likelihood of becoming a clinically active cancer due to size or lack of growth. Continue annual screening with LDCT in [address] ORDERABLES Final Result from Last 3 Months or Most Recently Relevant to Health Maintenance [place] [facility] * Guarantor: AREN TURNER Account Type Relation to Patient Date of Phone Billing Address Personal/Family [address] [place] [address] [facility] Care Teams Home Demonstration Agent Relationship Specialty Start Date End Date Yung Sanford DO [address] [place] [address] PCP - General Family Practice 06/07/21
--- OUTSIDE RECORDS SUMMARY | 2024-10-12 22:43 | XMS_ITS | Clinical Summary ---
Author Organization [facility] Car e Address [address] [place] [address] Care Team Providers Care Collar Tacker Name Role Phone Unavailable Primary Care Provider Unavailabl e Allergies No known active allergies Medications cyclobenzaprine (FLEXERIL) 10 mg tabletIndications:C hronic midline low back pain without sciatica Take 2 Tablets (20 mg) by mouth daily at bedtime For muscle spasm. 60 Tablet 3 09/25/2017 8:43 AM CDT 8 Active triamcinolone acetonide (KENALOG) 0.1 % CreamIndications:Ec zema, unspecified type Apply to affected area 2 times daily. 30 Gram 3 09/25/2017 8:43 AM CDT 8 Active tamsulosin (FLOMAX) 0.4 mg capsuleIndications: Nocturnal polyuria Take 1 Capsule (0.4 mg) by mouth daily For prostate. 30 Capsule 3 09/25/2017 8:43 AM CDT 8 Active celecoxib (CeleBREX) 200 mg capsuleIndications: Chronic midline low back pain without sciatica Take 1 Capsule (200 mg) by mouth 2 times daily For pain and inflammation . 60 Capsule 3 10/26/2017 7:55 AM CDT 8 Active clotrimazole (LOTRIMIN) 1 % CreamIndications:Ti bailey cruris Apply to affected area 2 times daily For rash. 60 Gram 3 09/26/2017 9:49 AM CDT 8 Active atorvastatin (LIPITOR) 40 mg tabletIndications:H yperlipidemia, unspecified hyperlipidemia type Take 1 Tablet (40 mg) by mouth daily For cholesterol. . 30 Tablet 3 10/01/2017 9:11 AM CDT 8 Active Active Problems Problem Noted Date Diagnosed Date Chronic pain of left ankle 09/25/2017 Tinea cruris 09/25/2017 Hearing loss of left ear 09/25/2017 Hyperlipemia 04/04/2017 Right ankle pain 04/03/2017 Bilateral knee pain 04/03/2017 Rash 04/03/2017 Nocturnal polyuria 04/03/2017 Low back pain 04/03/2017 Right shoulder pain 04/03/2017 Blurred vision 04/03/2017 Tobacco use 04/03/2017 History of melanoma 04/03/2017 Eczema 04/03/2017 Immunizations Immunization Administration Dates Next Due (PFIZER)(12 YR UP) COVID-19 VACCINE - EMERGENCY USE AUTHORIZATION, MRNA, [id number](PF) 30 MCG/0.3 ML IM SUSP 06/12/2020,05/22/2020 INFLUENZA VACCINE QUADRIVALENT 6 MOS UP IM 04/03 Social History Tobacco Use Types Packs/Day Years Used Date Smoking Tobacco: Every Day Cigarettes Smokeless Tobacco: Never Alcohol Use Standard Drinks/Week Comments No 0 (1 standard drink = 0.6 oz pur e alcohol) Sex and Gender Information Value Date Recorded Sex Assigned at Not on file 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 Gender Identity Not on file Sexual Orientation Not on file Last Filed Vital Signs Vital Sign Reading Time Taken Comments Blood Pressure 117/82 09/25/2017 1:11 PM CDT Pulse 75 09/25/2017 1:11 PM CDT Temperature - - Respiratory Rate - - Oxygen Saturation 95% 09/25/2017 1:11 PM CDT Inhaled Oxygen Concentration - - Weight 77.1 kg (170 lb) 09/25/2017 1:11 PM CDT Height 170.2 cm (5' 7 ) 09/25/2017 1:11 PM CDT Body Mass Index 26.63 09/25/2017 1:11 PM CDT Plan of Treatment Health Maintenance Due Date Last Done Comments DTAP/TDAP/TD VACCINES (1 - Tdap) 1984 HEPATITIS B VACCINES (1 of 3 - 19+ 3-dose series) 1984 COLORECTAL SCREENING 2010 Colorectal Cancer Screening 2010 FIT-DNA Q 3 years 2010 FIT/FOBT Q 1 year 2010 Flex Sig/CT Colonography Q 5 years 2010 ZOSTER VACCINE (1 of 2) 08/14/2015 COVID-19 Vaccine ( season) 10/14/202302/2020, 05/22/2020 INFLUENZA VACCINE (#1) 2024 04/03/2017 Insurance [address] [place] [id number] RX F [facility] Internal Plans [address] [place] [id number]
--- OUTSIDE RECORDS SUMMARY | 2024-10-12 22:43 | XMS_ITS | Encounter Summary ---
Author Organization [facility] Address 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 Gender Identity Not on file Sexual Orientation Not on file documented as of this encounter Plan of Treatment Upcoming Encounters Date Type Department Care Team (Late st Contact Info) Description 10/29/2024 1:15 PM CDT Appointment [facility] [address] [phone] Yung Sanford DO [address] [place] [phone] 01/07/2025 11:40 AM CORPORATE TAX PREPARER Office Visit [facility] Rheumatology- Weaver Claude Al [address] [place] [address] Lusi Alberto Mirza MD [address] [place] [address] 01/12/2025 2:40 PM CORPORATE TAX PREPARER Office Visit [facility] [address] [place] [phone] Katya Gutiérrez, [facility] [address] [place] [phone] documented as of this encounter Visit Diagnoses Not on filedocumented in this encounter Care Teams Billet Straightener Relationship Specialty Start Date End Date Yung Sanford DO [address] [place] [phone] PCP - General Family Practice 06/07/21 documented as of this encounter
--- NOTE | 2024-10-12 22:46 | XRR_ITS ---
PROCEDURE INFORMATION: Exam: XR Chest Exam date and time: 10/12/2024 10:49 PM Age: 59 years old Clinical indication: Fever TECHNIQUE: Imaging protocol: Radiologic exam of the chest. Views: 1 view. COMPARISON: No relevant prior studies available. FINDINGS: Lungs: Unremarkable. No consolidation. Pleural spaces: Unremarkable. No pleural effusion. No pneumothorax. Heart/Mediastinum: Unremarkable. No cardiomegaly. Bones/joints: Unremarkable. XR/XR chest 1V portable [id number] IMPRESSION: No acute findings.
--- NOTE | 2024-10-12 23:17 | ED_ITS ---
HPI - Fever 2 General: Chief Complaint: Fever Stated Complaint: Fever Time Seen by Provider: 10/12/24 22:43 Source: patient Mode of arrival: ambulatory Limitations: no limitations History of Present Illness: Patient is a 59-year-old male who presents the emergency department complaining of a fever for a week. Only other symptom to note is chills that is intermittent and worse at night. States that he has been taking Motrin and Tylenol intermittently for the fevers, he arrives afebrile with temp at 98.1. States he had blood work with primary care on , and these are reviewed at this time and do not show any acute abnormalities. These were on his personal cell phone and not in the system. Denies any pertinent past medical history, though he is an everyday smoker. 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 States he thinks he has been drinking enough water but ultimately is not sure. He is asymptomatic at this time, his vitals are within normal limits. Denies any known sick contact exposure. No chest pain, shortness of breath, wheezing, abdominal pain, nausea, vomiting, diarrhea, or any other symptoms. MD elicited complaint: fever Onset (ago): week(s) (1) Measured temperature: 102.8 F Associated symptoms: Reports chills; Deny abdominal pain, flank pain, chest pain, diarrhea, dysuria, headache(s), nausea or vomiting Related Data Allergies Allergy/AdvReac Type Severity Reaction Status Date / Time No Known Allergies Allergy Verified 10/12/24 22:39 Review of Systems 2 General: Reports: 10 or more systems reviewed and unremarkable except in HPI and below Const: Reports: fever(s) and chills; Denies: fatigue Eyes: Denies: change in vision ENMT: Denies: throat pain, ear or mastoid pain or nasal discharge Card: Denies: chest pain, palpitations, swelling of feet/ankles or lightheadedness Resp: Denies: dyspnea, productive cough or wheezing GI: Denies: abdominal pain, nausea, vomiting, diarrhea or constipation : Denies: flank pain, difficulty urinating, dysuria or urinary frequency Musc: Denies: neck pain, back pain or joint pain Skin/Breast: Denies: rash Neuro: Denies: headache(s), numbness in extremities or weakness in extremities Physical Exam 2 Const: COMMON NORMALS: no acute distress, patient oriented x3 and no limitations GENERAL APPEARANCE: cooperative, comfortable and well developed ORIENTATION/CONSCIOUSNESS: Yes awake, Yes oriented to person, Yes oriented to place and Yes oriented to time HENMT: COMMON NORMALS: normocephalic, atraumatic and hearing grossly normal bilaterally HEAD & SCALP: normocephalic and atraumatic Eye: COMMON NORMALS: Equal, round and reactive pupils present, EOMs intact bilaterally and conjunctivae normal CONJUNCTIVA: Yes conjunctivae normal P UPIL: Yes Equal, round and reactive pupils present Neck/C-Spine: COMMON NORMALS: full ROM, supple and no JVD Resp: COMMON NORMALS: normal respiratory effort, No retractions, No use of accessory muscles and clear to auscultation bilaterally AUSCULTATION: clear to auscultation bilaterally Cardio: COMMON NORMALS: no JVD, regular rate, regular rhythm, No clicks present (Cardio), No murmurs present (Cardio) and No rub (Cardio) RATE: r egular rate RHYTHM: regular rhythm GI: COMMON NORMALS: Normal to inspection, nondistended, normoactive bowel sounds present, Soft to palpation and non-tender AUSCULTATION: Yes normoactive bowel sounds PALPATION: Yes Soft to palpation RECTAL EXAM: Yes deferred Extremity: COMMON NORMALS: normal to inspection, full ROM and capillary refill normal Neuro: COMMON NORMALS: patient oriented x3, moves all extremities, no focal motor deficits and no sensory deficits noted SENSORIUM/ORIENTATION: Yes oriented to person, Yes oriented to place and Yes oriented to time Psych: COMMON NORMALS: mental status grossly normal and Normal thought process present THOUGHT PROCESS: Normal thought process present Skin: COMMON NORMALS: no rashes or lesions noted GENERAL SKIN EXAM: no rashes or lesions noted Course 2 Vital Signs: Vital signs: Vital Signs Temperature 98.1 F 10/12/24 22:33 Pulse Rate 83 10/13/24 00:43 Respiratory Rate 14 10/13/24 00:43 Blood Pressure 123/62 10/13/24 00:43 Pulse Oximetry 96 10/13/24 00:43 Oxygen Delivery Me thod Room Air 10/12/24 23:21 MDM - Fever Medical Decision Making This patient presented reporting fevers intermittently throughout the week, has been afebrile here in the emergency department. He had no other symptoms to report other than some mild chills at night, though he stated that these had improved. States he is continue to work outside despite running his fevers, there has been no change in his activity or energy level, no shortness of breath or nausea/vomiting/diarrhea, or any other concerning historical elements. Physical exam was unremarkable. He has continued to smoke as well. Lab work revealing signs of dehydration, he is given IV fluids and on recheck states he does feel about the same, may be somewhat better though he was not necessarily feeling ill on presentation just wanted to know why he was running fevers. Viral swab for COVID flu RSV was negative, this could likely be a viral syndrome that was not tested for, otherwise he is stable for discharge home and there is no need for further workup here in the emergency department. An x-ray was also unremarkable, and urinalysis negative for any UTI. Informed him to follow-up with his primary care next week for reevaluation, and he is educated on specific signs and symptoms to watch for that would warrant a return to ED. He endorsed understanding. Lab Data 10/12/24 23:15 10/12/24 23:15 Radiology Impressions Chest X-Ray 10/12/24 22:46 IMPRESSION: No acute findings. Laboratory Results WBC 7.49 10^3/uL (3.29-11.43) 10/12/24 23:15 RBC 5.24 10^6/uL (3.85-5.65) 10/12/24 23:15 Hgb 15.90 g/dL (11.27-16.99) 10/12/24 23:15 Hct 45.4 % (37-53) 10/12/24 23:15 MCV 86.6 fl (82-101) 10/12/24 23:15 MCH 30.3 pg (27-33) 10/12/24 23:15 MCHC 35.0 g/dL (30-55) 10/12/24 23:15 RDW 13.1 % (12.1-15.1) 10/12/24 23:15 Plt Count 107 10^3/cmm (157-399) L 10/12/24 23:15 MPV 9.9 fL (7.4-10.4) 10/12/24 23:15 Lymph % (Auto) Not Reportable 10/12/24 23:15 Coos % (Auto) Not Reportable 10/12/24 23:15 Lymph # (Auto) Not Reportable 10/12/24 23:15 Coos # (Auto) Not Reportable 10/12/24 23:15 Total Counted 100 (0-100) 10/12/24 23:15 Atypical Lymphs % 26.0 % (0-5) H 10/12/24 23:15 Absolute Neutrophils 3.4 10^3/cmm (1.4-6.5) 10/12/24 23:15 Segmented Neutrophils 30 % 10/12/24 23:15 Band Neutrophils 16.0 % 10/12/24 23:15 Absolute Lymphocytes 3.9 10^3/cmm (1.2-3.4) H 10/12/24 23:15 Lymphocytes (Manual) 26 % 10/12/24 23:15 Monocytes (Manual) 2.0 % 10/12/24 23:15 Absolute Monocytes 0.1 10^3/cmm (0.1-0.6) 10/12/24 23:15 Eosinophils (Manual) 0 % 10/12/24 23:15 Absolute Eosinophils 0.0 10^3/cmm (0.0-0.7) 10/12/24 23:15 Basophils (Manual) 0.0 % 10/12/24 23:15 Absolute Basophils 0.0 10^3/cmm (0.0-0.2) 10/12/24 23:15 Platelet Estimate Decreased (Normal) 10/12/24 23:15 Sodium 131 mmol/L (136-145) L 10/12/24 23:15 Potassium 3.0 mmol/L (3.5-5.1) L 10/12/24 23:15 Chloride 98 mmol/L (98-107) 10/12/24 23:15 Carbon Dioxide 20 mmol/L (22-29) L 10/12/24 23:15 Anion Gap 16.0 (5-19) 10/12/24 23:15 BUN 16 mg/dL (6-20) 10/12/24 23:15 Creatinine 1.1 mg/dL (0.7-1.2) 10/12/24 23:15 GFR Calculation 68.5 mL/min (90-130) L 10/12/24 23:15 Glucose 120 mg/dL (65-115) H 10/12/24 23:15 Calculated Osmolality 274 mOsm/kg (285-295) L 10/12/24 23:15 Calcium 8.6 mg/dL (8.5-10.5) 10/12/24 23:15 Total Bilirubin 0.9 mg/dL (0.15-1.2) 10/12/24 23:15 AST 46 U/L (0-40) H 10/12/24 23:15 ALT 31 U/L (0-41) 10/12/24 23:15 Alkaline Phosphatase 119 U/L (40-130) 10/12/24 23:15 Total Protein 7.2 g/dL (6.6-8.7) 10/12/24 23:15 Albumin 3.9 g/dL (3.5-5.2) 10/12/24 23:15 Globulin 3.3 g/dL (1.3-4.6) 10/12/24 23:15 Urine Color Yellow (Yellow) 10/13/24 00:02 Urine Appearance Clear (CLEAR) 10/13/24 00:02 Urine pH 5.5 (5-7) 10/13/24 00:02 Ur Specific [place] 1.008 (1.005-1.030) 10/13/24 00:02 Urine Protein Negative (Negative) 10/13/24 00:02 Urine Glucose (UA) Negative (Normal) 10/13/24 00:02 Urine Ketones Negative (Negative) 10/13/24 00:02 Urine Blood Negative (Negative) 10/13/24 00:02 Urine Nitrate Negative (Negative) 10/13/24 00:02 Urine Bilirubin Negative (Negative) 10/13/24 00:02 Urine Urobilinogen 1.0 mg/dL (Negative) 10/13/24 00:02 Ur Leukocyte Esterase Negative (Negative) 10/13/24 00:02 Urine RBC 0-2 /hpf (0-2) 10/13/24 00:02 Urine WBC 0-5 /hpf (0-5) 10/13/24 00:02 Ur Squamous Epith Cells 0-5 /hpf (0-5) 10/13/24 00:02 Amorphous Sediment Not Reportable 10/13/24 00:02 Urine Bacteria None seen /hpf (NONE) 10/13/24 00:02 Hyaline Casts 0-4 /lpf H 10/13/24 00:02 Influenza A (PCR) Negative (Negative) 10/12/24 23:12 Influenza Type B (PCR) Negative (Negative) 10/12/24 23:12 RSV (PCR) Negative (Negative) 10/12/24 23:12 SARS-CoV-2 (PCR) Negative (Negative) 10/12/24 23:12 All radiology interpretation(s) finalized by discharge Discharge Plan Discharge Patient Disposition: Home Clinical Impression: Dehydration Condition: Stable Discharge Orders: Discharge ED (Routine); Ordered 10/13/24 Ordered By: Elmer Pope Patient Instructions: Patient Portal & Saray Instructions Activity Restrictions/Additional Instructions: Dehydration Discharge Instructions Discharge Instructions: Dehydration and Recent Fever Summary of ED Course: 59-year-old male presented with a history of fevers over the past week, afebrile in the ED, with laboratory evidence of dehydration. No other symptoms reported. Received intravenous fluids and was clinically stable at discharge. 1. Hydration and Diet - Resume oral intake with a focus on adequate hydration. - Preferred fluids include water and oral rehydration solutions (ORS); commercially available low-osmolarity ORS (e.g., Pedialyte) are recommended for ongoing mild to moderate dehydration. [1] https://www.ncbi.nlm.nih.gov/pmc/articles/TNR8771054/ - Avoid excessive intake of sugar-sweetened beverages (e.g., soft drinks, fruit juices, sports drinks), as these may worsen dehydration or electrolyte imbalance. [1] https://www.ncbi.nlm.nih.gov/pmc/articles/TLY2721671/ - Resume a regular, balanced diet as tolerated. 2. Monitoring for Recurrence or Complications - Watch for recurrence of fever, new symptoms (e.g., chills, rigors, cough, shortness of breath, chest pain, abdominal pain, dysuria, confusion), or worsening of current symptoms. - Dehydration may recur, especially if oral intake is inadequate or if fever returns. [2] https://[employer].Food.ee.com/kayli/article-lookup/doi/10.1086/723894 [3] https://pubmed.ncbi.nlm.nih.gov/97963344 - Signs of dehydration include dry mouth, decreased urine output, dizziness, weakness, or confusion.[3] https://pubmed.ncbi.nlm.nih.gov/17084028 3. When to Seek Immediate Medical Attention - Return to the emergency department or seek urgent care if any of the following occur: - Persistent or recurrent fever >101?F (38.3?C) - New or worsening confusion, lethargy, or altered mental status - Inability to tolerate oral fluids (persistent vomiting or diarrhea) - Signs of severe dehydration: minimal urine output, rapid heartbeat, low blood pressure, fainting - Development of new symptoms (e.g., chest pain, shortness of breath, abdominal pain, severe headache)[4] https://pubmed.ncbi.nlm.nih.gov/31462355 [2] https://[employer]/kayli/article-lookup/doi/10.1086/772880 [3] https://pubmed.ncbi.nlm.nih.gov/03781711 4. Follow-Up - Schedule a follow-up appointment with the primary care provider early next week for reassessment and repeat laboratory evaluation, as recommended in the ED. - Bring a copy of the ED discharge summary and laboratory results to the appointment. 5. Medication Review - Review current medications with the primary care provider, especially diuretics or other agents that may predispose to dehydration.[2] https://[employer]/kayli/article-lookup/doi/10.1086/317872 [5] https://pubmed.ncbi.nlm.nih.gov/83703097 6. Additional Considerations - If unable to maintain adequate oral intake, or if symptoms worsen, intravenous rehydration may be required. [1] https://www.ncbi.nlm.nih.gov/pmc/articles/SOH7422615/ [6] https://journals.[employer] TierTime Technologyub.com/doi/10.1177/11676777522186083?url_ver=Z39.88- 2003&rfr_id=delfino:rid:crossref.org&rfr_dat=cr_pub%20%200pubmed - Special attention should be paid to underlying comorbidities (e.g., diabetes, cardiac disease), which may increase risk for complications from dehydration or infection.[2] https://[employer].Food.ee.Par[employer]/kayli/article-lookup/doi/10.1086/907025 [5] https://pubmed.ncbi.nlm.nih.gov/71763011 Patient Education - Maintaining hydration is essential for recovery. - Monitor for any new or worsening symptoms and seek care promptly if they arise. - Adherence to follow-up is important for safe recovery and to identify any underlying cause of fever or dehydration. References * 2017 Infectious Diseases Society of [place] Clinical Practice Guidelines for the Diagnosis and Management of Infectious Diarrhea https://www.ncbi.nlm.nih.gov/pmc/articles/UUO9750622/ . Saqib AL, Petty RK, Brigette CARO, et al. Clinical Infectious Diseases : An Official Publication of the Infectious Diseases Society of [place]. 2017;65(12):e45-e80. doi:10.1093/kayli/gip323. * Clinical Practice Guideline for the Evaluation of Fever and Infection in Older Adult Residents of Long-Term Care Facilities: 2008 Update by the Infectious Diseases Society of [place] https://W[employer].Parallel Universe/kayli/article- lookup/doi/10.1086/186041 . KP, Jordan SF, Peggy S, et al. Clinical Infectious Diseases : An Official Publication of the Infectious Diseases Society of [place]. 2009;48(2):149-71. doi:10.1086/934601. * A Multidisciplinary Consensus on Dehydration: Definitions, Diagnostic Methods and Clinical Implications https://pubmed.ncbi.nlm.nih.gov/69148002 . Beena Rosa, Raymond J, Brian L, et al. Annals of Medicine. 2019 June - Jul;51(3-4):232-251. doi:10.1080/25126438.2019.9364655. * Essential Content for Discharge Instructions in Pediatric Emergency Care: A [place] Study https://pubmed.ncbi.nlm.nih.gov/62939641 . Sebastián CARO, Raman A, Ta E, et al. Pediatric Emergency Care. 2018;34(5):339-343. doi:10.1097/PEC.8599240844195572. * Clinical Practice Guideline for the Evaluation of Fever and Infection in Older Adult Residents of Long-Term Care Facilities: 2008 Update by the Infectious Diseases Society of [place] https://pubmed.ncbi.nlm.nih.gov/79754978 . High TODD, Jordan SF, Peggy S, et al. Journal of the [place] Geriatrics Society. 2009;57(3):375-94. doi:10.1111/j.9323-9683.2009.22735.x. * [facility] Clinical Practice Guidelines for the Prevention and Treatment of Heat Illness: 2023 Update https://journals.[employer] Tier[employer] Technologyub.com/doi/10.1177/86724333740753910?url_ver=Z39.88-2003 &rfr_id=delfino:rid:crossref.org&rfr_dat=cr_pub%20%200pubmed . Megan TODD, Myke FG, Carlos C, et al. [facility] & [facility]. 2023;35(1_suppl):112S-127S. doi:10.1177/17048789408693462. 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
[2024-10-12 23:21] VITALS: BP 130/67; RESP 16; O2SAT 97
[2024-10-12 23:23] LABS: Hematocrit 45.4 % (37-53); Hemoglobin 15.90 g/dL (11.27-16.99); Mean Corpuscular HGB Conc 35.0 g/dL (30-55); Mean Corpuscular Hemoglobin 30.3 pg (27-33); Mean Corpuscular Volume 86.6 fl (82-101); Platelet Count 107 10^3/cmm (157-399); Red Blood Count 5.24 10^6/uL (3.85-5.65); White Blood Count 7.49 10^3/uL (3.29-11.43)
[2024-10-12 23:29] LABS: Slide Review Slide Review Perform
[2024-10-12 23:43] LABS: Alanine Aminotransferase 31 U/L (0-41); Albumin Level 3.9 g/dL (3.5-5.2); Alkaline Phosphatase 119 U/L (40-130); Anion Gap 16.0 (5-19); Aspartate Amino Transferase 46 U/L (0-40); Blood Urea Nitrogen 16 mg/dL (6-20); Calcium 8.6 mg/dL (8.5-10.5); Carbon Dioxide 20 mmol/L (22-29); Chloride 98 mmol/L (98-107); Creatinine Clr Calc Pharmacy 72.1297; Globulin 3.3 g/dL (1.3-4.6); Glucose 120 mg/dL (65-115); Osmolality Calculated 274 mOsm/kg (285-295); Potassium 3.0 mmol/L (3.5-5.1); Sodium 131 mmol/L (136-145); Total Protein 7.2 g/dL (6.6-8.7)
[2024-10-13 00:02] LABS: Respiratory Syncytial Virus Ce NEGATIVE (Negative); SARS-CoV-2 PCR NEGATIVE (Negative)
[2024-10-13 00:21] LABS: Glucose Urine UA Negative (Normal); Nitrate Urine Negative (Negative); Specific Gravity, Urine 1.008 (1.005-1.030)
[2024-10-13 00:26] LABS: Add Urine Microscopic? YES
[2024-10-13 00:43] VITALS: BP 123/62; PULSE 83; RESP 14; O2SAT 96
[2024-10-13 01:01] LABS: Absolute Segmented Neutrophil 2.2 10/cmm (1.6-7.1); Atypical Lymphs 26.0 % (0-5); Band Neutrophils Absolute 1.2 10^3/cmm (0.0-1.2); Total Cells Counted 100 (0-100)
== END 2024-10-13 00:44 | disposition home or self-care (01) ==
PROVIDERS: Emergency Provider Physician Assistant
DX: E86.0 Dehydration (principal); Z11.52 Encounter for screening for COVID-19
CPT/HCPCS: 36415; 71045; 80053; 81001; 85007; 85025; 87637; 99284; J7030

== ENCOUNTER 2024-10-13 05:00 | Outpatient (RCR) | payer MEDICARE, MEDICAID, SELFPAY | END 2024-11-11 23:59 | disposition home or self-care (01) | LOC: SPT 05:00 | PROVIDERS: Visit Provider Family Medicine | DX: M62.81 Muscle weakness (generalized) (principal) | CPT/HCPCS: 97110; 97162 ==

== ENCOUNTER 2024-12-11 14:00 | Outpatient (RCR) | payer MEDICARE, MEDICAID, SELFPAY | END 2024-12-12 23:59 | disposition home or self-care (01) | LOC: SPT 14:00 | PROVIDERS: Visit Provider Family Medicine | DX: M62.81 Muscle weakness (generalized) (principal) | CPT/HCPCS: 97110; 97112; 97530 ==

== ENCOUNTER 2024-12-25 14:26 | Outpatient (RCR) | payer MEDICARE, MEDICAID, SELFPAY | END 2024-12-26 07:01 | disposition home or self-care (01) | LOC: SPT 14:26 | PROVIDERS: Visit Provider Family Medicine | DX: M62.81 Muscle weakness (generalized) (principal) | CPT/HCPCS: 97110; 97112; 97530 ==